=== PATIENT | female | born 1985 | race Asian ===

== ENCOUNTER 2020-10-31 18:08 | Inpatient (IN) | payer BC, OTHER ==
[~2020-10-31] VITALS: Ht 147.3 cm; Wt 56.0 kg
[~2020-10-31 18:08] MED LIST: IBUP200T49 PO; OXYC1TAB14 PO
--- NOTE | 2020-10-31 18:33 | NUR ---
Pt states she is here for TPN evaluation s/p small and large bowel removal and stoma creation.
--- NOTE | 2020-10-31 18:46 | NUR ---
PICC line accessed with sterile technique and labs drawn followed by port flushed. Red port used and PICC is a triple port access device. Pt now having EKG completed.
[2020-10-31 18:56] LABS: BASOPHILS % (AUTO) 1 % (0-1); EOSINOPHILS % (AUTO) 2 % (1-7); LYMPHOCYTES % (AUTO) 39 % (22-44); MEAN CORPUSCULAR HEMOGLOBIN 26.6 pg (27.0-34.8); MEAN CORPUSCULAR HGB CONC 33.4 g/dL (32.4-35.8); MEAN PLATELET VOLUME 8.9 fL (7.4-10.4); MONOCYTES % (AUTO) 13 % (2-9); NEUTROPHILS % (AUTO) 46 % (42-75); PLATELET COUNT 272 x10^3/uL (130-400); RED BLOOD COUNT 4.26 x10^6/uL (3.82-5.3); RED CELL DISTRIBUTION WIDTH 17.5 % (9.6-15.2)
[2020-10-31 18:58] LABS: MD NO
--- NOTE | 2020-10-31 19:05 | NUR ---
Report given to UMESH Saucedo and care transferred.
[2020-10-31 19:26] LABS: ALANINE AMINOTRANSFERASE 157 U/L (12-78); ALBUMIN 3.1 g/dL (3.4-5.0); ANION GAP 8 mmol/L (5-15); CHLORIDE 111 mmol/L (98-107); CREATININE 0.91 mg/dL (0.55-1.02)
[2020-10-31 19:28] LABS: ALKALINE PHOSPHATASE 170 U/L (45-117); BILIRUBIN,TOTAL 0.7 mg/dL (0.2-1.0); TOTAL PROTEIN 8.3 g/dL (6.4-8.2)
[2020-10-31] MEDS ORDERED: SODIUM CHLORIDE FLUSH 10ML SYR IVF PRN (21:30)
[2020-10-31] MEDS ORDERED: ONDANSETRON 2MG/ML, 2ML IVPush PRN (23:30)
[2020-10-31] MEDS ORDERED: D5%-0.45NACL+KCL 20MEQ 1,000 ML IV SCH (23:30)
[2020-10-31] MEDS ORDERED: morphine SULFATE 10 MG/ML, 1ML IVPush PRN (23:30)
[2020-10-31 23:54] LABS: INTERNATIONAL NORMALIZED RATIO 0.98 (0.93-1.1); PROTHROMBIN TIME 10.5 Seconds (9.6-11.5)
[2020-10-31 23:56] VITALS: BP 110/66
[2020-11-01] MEDS ORDERED: ENOX100S5 SQ (00:30)
[2020-11-01] MEDS: ENOXAPARIN 60 MG/0.6 ML SQ SCH ×3 (00:33→23:37)
[2020-11-01 06:22] LABS: BASOPHILS % (AUTO) 1 % (0-1); EOSINOPHILS % (AUTO) 2 % (1-7); LYMPHOCYTES % (AUTO) 46 % (22-44); MEAN CORPUSCULAR HEMOGLOBIN 26.7 pg (27.0-34.8); MEAN CORPUSCULAR HGB CONC 33.2 g/dL (32.4-35.8); MONOCYTES % (AUTO) 14 % (2-9); NEUTROPHILS % (AUTO) 37 % (42-75); PLATELET COUNT 277 x10^3/uL (130-400); RED BLOOD COUNT 4.19 x10^6/uL (3.82-5.3); RED CELL DISTRIBUTION WIDTH 17.2 % (9.6-15.2)
[2020-11-01 06:24] LABS: MD NO
[2020-11-01 06:35] LABS: ALANINE AMINOTRANSFERASE 149 U/L (12-78); ALBUMIN 2.8 g/dL (3.4-5.0); ANION GAP 9 mmol/L (5-15); CALCIUM 8.2 mg/dL (8.5-10.1); CHLORIDE 111 mmol/L (98-107); CREATININE 0.76 mg/dL (0.55-1.02)
[2020-11-01 06:37] LABS: ALKALINE PHOSPHATASE 154 U/L (45-117); BILIRUBIN,TOTAL 0.6 mg/dL (0.2-1.0); TOTAL PROTEIN 7.5 g/dL (6.4-8.2)
[2020-11-01] MEDS ORDERED: TPN PER PHARMACY MC PRN (07:00)
[2020-11-01 07:28] VITALS: BP 95/63
[2020-11-01] MEDS ORDERED: D5%-0.45NACL+KCL 20MEQ 1,000 ML IV SCH (08:42)
[2020-11-01] MEDS ORDERED: D5%-0.45% NACL 1,000 ML IV SCH ×2 (09:00→17:00)
[2020-11-01 12:40] VITALS: BP 106/79
[2020-11-01] MEDS: LACTOBACILLUS CHEW TABLET PO SCH ×2 (16:00→20:30)
[2020-11-01] MEDS ORDERED: AMINO ACID 10% IV SCH (17:00)
[2020-11-01] MEDS ORDERED: FAT EMUL IV SCH (17:00)
[2020-11-01] MEDS ORDERED: DEXTROSE 70% IV SCH (17:00)
[2020-11-01] MEDS ORDERED: DEXTROSE 50%, 50ML SYRINGE IVPush PRN (17:00)
[2020-11-01] MEDS ORDERED: [UNRECOGNIZED DRUG - OTHER] IV SCH (17:00)
[2020-11-01] MEDS ORDERED: SMOF TPN IV SCH (17:00)
[2020-11-01] MEDS ORDERED: DEXTROSE 10% 500 ML IV PRN (17:00)
[2020-11-01 18:59] VITALS: BP 109/78
[2020-11-01] MEDS: INSULIN REGULAR LOW DOSE Q6H X 48HRS SQ-INSULIN SCH (20:31)
[2020-11-02 00:23] VITALS: BP 101/71
[2020-11-02] MEDS: INSULIN REGULAR LOW DOSE Q6H X 48HRS SQ-INSULIN SCH ×4 (03:00→19:36)
[2020-11-02 03:39] LABS: ALANINE AMINOTRANSFERASE 151 U/L (12-78); ALBUMIN 2.9 g/dL (3.4-5.0); ANION GAP 5 mmol/L (5-15); CALCIUM 8.8 mg/dL (8.5-10.1); CHLORIDE 107 mmol/L (98-107)
[2020-11-02 03:44] LABS: ALKALINE PHOSPHATASE 166 U/L (45-117); BILIRUBIN, DIRECT 0.2 mg/dL (0.1-0.2); BILIRUBIN,INDIRECT 0.3 mg/dL (0.0-2.0); BILIRUBIN,TOTAL 0.5 mg/dL (0.2-1.0); CREATININE 0.87 mg/dL (0.55-1.02); PREALBUMIN 30.8 mg/dL (20.0-40.0); TRIGLYCERIDES 146 mg/dL (50-200)
[2020-11-02 07:07] VITALS: BP 109/82
[2020-11-02] MEDS ORDERED: POTASSIUM CHLORIDE 20 MEQ TAB.ER.PRT PO ONE (07:30)
[2020-11-02] MEDS: LACTOBACILLUS CHEW TABLET PO SCH ×3 (09:00→19:36)
[2020-11-02 12:19] VITALS: BP 91/68
[2020-11-02] MEDS: ENOXAPARIN 60 MG/0.6 ML SQ SCH ×2 (12:32→23:43)
[2020-11-02] MEDS ORDERED: FAT EMUL IV SCH (17:00)
[2020-11-02] MEDS ORDERED: DEXTROSE 70% IV SCH (17:00)
[2020-11-02] MEDS ORDERED: SMOF TPN IV SCH (17:00)
[2020-11-02] MEDS ORDERED: AMINO ACID 10% IV SCH (17:00)
[2020-11-02] MEDS ORDERED: [UNRECOGNIZED DRUG - OTHER] IV SCH (17:00)
[2020-11-02] MEDS: FILTER, DISP 1.2 MICRON FOR TPN/PVN IV PRN (18:21)
[2020-11-02 18:57] VITALS: BP 99/68
[2020-11-03 00:43] VITALS: BP 101/73
[2020-11-03] MEDS: INSULIN REGULAR LOW DOSE Q6H X 48HRS SQ-INSULIN SCH ×3 (03:00→15:00)
[2020-11-03 04:08] LABS: ALBUMIN 3.2 g/dL (3.4-5.0); ANION GAP 8 mmol/L (5-15); CALCIUM 9.9 mg/dL (8.5-10.1); CHLORIDE 92 mmol/L (98-107)
[2020-11-03 04:12] LABS: ALANINE AMINOTRANSFERASE 160 U/L (12-78); ALKALINE PHOSPHATASE 223 U/L (45-117); BILIRUBIN,TOTAL 0.6 mg/dL (0.2-1.0); TOTAL PROTEIN 9.2 g/dL (6.4-8.2)
[2020-11-03 07:04] VITALS: BP 89/66
[2020-11-03] MEDS ORDERED: POTASSIUM CHLORIDE 40 MEQ in SODIUM CHLORIDE 0.9% 100 ML IV ONE (08:00)
[2020-11-03] MEDS: LACTOBACILLUS CHEW TABLET PO SCH ×4 (08:24→20:03)
[2020-11-03] MEDS ORDERED: LOPERAMIDE 1 MG/5 ML, 10ML UDC PO SCH (09:00)
[2020-11-03] MEDS: LOPERAMIDE 1 MG/7.5 ML LIQUID PO SCH ×2 (11:25→20:04)
[2020-11-03] MEDS: ENOXAPARIN 60 MG/0.6 ML SQ SCH ×2 (11:25→23:46)
[2020-11-03 12:26] VITALS: BP 99/70
[2020-11-03] MEDS ORDERED: AMINO ACID 10% IV SCH (17:00)
[2020-11-03] MEDS ORDERED: FAT EMUL IV SCH (17:00)
[2020-11-03] MEDS ORDERED: [UNRECOGNIZED DRUG - OTHER] IV SCH (17:00)
[2020-11-03] MEDS ORDERED: DEXTROSE 70% IV SCH (17:00)
[2020-11-03] MEDS ORDERED: SMOF TPN IV SCH (17:00)
[2020-11-03 19:29] VITALS: BP 100/71
[2020-11-04 01:36] VITALS: BP 103/73
[2020-11-04 05:53] LABS: ALANINE AMINOTRANSFERASE 154 U/L (12-78); ALBUMIN 3.3 g/dL (3.4-5.0); ANION GAP 8 mmol/L (5-15); CALCIUM 9.6 mg/dL (8.5-10.1); CHLORIDE 96 mmol/L (98-107); CREATININE 0.94 mg/dL (0.55-1.02)
[2020-11-04 05:56] LABS: ALKALINE PHOSPHATASE 238 U/L (45-117); BILIRUBIN,TOTAL 0.6 mg/dL (0.2-1.0)
[2020-11-04] MEDS: INSULIN REGULAR LOW DOSE QDAY SQ-INSULIN SCH (07:30)
[2020-11-04 07:38] VITALS: BP 104/75
[2020-11-04] MEDS: LACTOBACILLUS CHEW TABLET PO SCH ×3 (07:52→20:21)
[2020-11-04] MEDS: LOPERAMIDE 1 MG/7.5 ML LIQUID PO SCH ×2 (07:53→20:21)
[2020-11-04] MEDS ORDERED: POTASSIUM CHLORIDE 40 MEQ in SODIUM CHLORIDE 0.9% 500 ML IV ONE (11:00)
[2020-11-04] MEDS ORDERED: POTASSIUM CHLORIDE 40 MEQ in SODIUM CHLORIDE 0.9% 100 ML IV ONE (11:00)
[2020-11-04] MEDS: ENOXAPARIN 60 MG/0.6 ML SQ SCH ×2 (11:04→23:51)
[2020-11-04 12:48] VITALS: BP 103/73
[2020-11-04] MEDS ORDERED: [UNRECOGNIZED DRUG - OTHER] IV SCH (17:00)
[2020-11-04] MEDS ORDERED: SMOF TPN IV SCH (17:00)
[2020-11-04] MEDS ORDERED: AMINO ACID 10% IV SCH (17:00)
[2020-11-04] MEDS ORDERED: FAT EMUL IV SCH (17:00)
[2020-11-04] MEDS ORDERED: DEXTROSE 70% IV SCH (17:00)
[2020-11-04 19:05] VITALS: BP 107/76
[2020-11-05 02:07] VITALS: BP 94/63
[2020-11-05 04:34] LABS: ALANINE AMINOTRANSFERASE 132 U/L (12-78); ANION GAP 5 mmol/L (5-15); CALCIUM 9.1 mg/dL (8.5-10.1); CHLORIDE 110 mmol/L (98-107)
[2020-11-05 04:37] LABS: ALKALINE PHOSPHATASE 205 U/L (45-117); BILIRUBIN,TOTAL 0.5 mg/dL (0.2-1.0); CREATININE 0.72 mg/dL (0.55-1.02); TOTAL PROTEIN 8.2 g/dL (6.4-8.2)
[2020-11-05] MEDS: INSULIN REGULAR LOW DOSE QDAY SQ-INSULIN SCH (07:30)
[2020-11-05 07:38] VITALS: BP 101/67
[2020-11-05] MEDS: LACTOBACILLUS CHEW TABLET PO SCH ×3 (08:21→20:05)
[2020-11-05] MEDS: LOPERAMIDE 1 MG/7.5 ML LIQUID PO SCH ×2 (08:22→20:05)
[2020-11-05] MEDS: ENOXAPARIN 60 MG/0.6 ML SQ SCH ×2 (11:42→23:30)
[2020-11-05 12:58] VITALS: BP 99/68
[2020-11-05] MEDS ORDERED: DEXTROSE 70% IV SCH (17:00)
[2020-11-05] MEDS ORDERED: FAT EMUL IV SCH (17:00)
[2020-11-05] MEDS ORDERED: AMINO ACID 10% IV SCH (17:00)
[2020-11-05] MEDS ORDERED: [UNRECOGNIZED DRUG - OTHER] IV SCH (17:00)
[2020-11-05] MEDS ORDERED: SMOF TPN IV SCH (17:00)
[2020-11-05 18:37] VITALS: BP 103/67
[2020-11-06 00:52] VITALS: BP 100/67
[2020-11-06 04:59] LABS: ALANINE AMINOTRANSFERASE 127 U/L (12-78); ANION GAP 5 mmol/L (5-15); CALCIUM 9.1 mg/dL (8.5-10.1); CHLORIDE 111 mmol/L (98-107); CREATININE 0.73 mg/dL (0.55-1.02)
[2020-11-06 05:02] LABS: ALKALINE PHOSPHATASE 222 U/L (45-117); BILIRUBIN,TOTAL 0.5 mg/dL (0.2-1.0); TOTAL PROTEIN 8.5 g/dL (6.4-8.2)
[2020-11-06 07:04] VITALS: BP 99/70
[2020-11-06] MEDS: INSULIN REGULAR LOW DOSE QDAY SQ-INSULIN SCH (07:30)
[2020-11-06] MEDS: LACTOBACILLUS CHEW TABLET PO SCH ×3 (09:00→21:08)
[2020-11-06] MEDS: LOPERAMIDE 1 MG/7.5 ML LIQUID PO SCH ×2 (09:00→21:08)
[2020-11-06] MEDS: ENOXAPARIN 60 MG/0.6 ML SQ SCH ×2 (11:30→23:25)
[2020-11-06 13:49] VITALS: BP 110/75
[2020-11-06] MEDS ORDERED: FAT EMUL IV SCH (17:00)
[2020-11-06] MEDS ORDERED: AMINO ACID 10% IV SCH (17:00)
[2020-11-06] MEDS ORDERED: SMOF TPN IV SCH (17:00)
[2020-11-06] MEDS ORDERED: DEXTROSE 70% IV SCH (17:00)
[2020-11-06] MEDS ORDERED: [UNRECOGNIZED DRUG - OTHER] IV SCH (17:00)
[2020-11-06] MEDS: FILTER, DISP 1.2 MICRON FOR TPN/PVN IV PRN (17:08)
[2020-11-06] MEDS: CATHFLO-ALTEPLASE 2 MG/2 ML CATHFLUSH ONE ×2 (17:30→17:58)
[2020-11-06 19:58] VITALS: BP 101/73
[2020-11-07 00:12] VITALS: BP 108/77
[2020-11-07 06:20] LABS: ALANINE AMINOTRANSFERASE 146 U/L (12-78); ALBUMIN 3.2 g/dL (3.4-5.0); ANION GAP 6 mmol/L (5-15); CALCIUM 9.1 mg/dL (8.5-10.1); CHLORIDE 96 mmol/L (98-107); CREATININE 0.79 mg/dL (0.55-1.02)
[2020-11-07 06:25] LABS: ALKALINE PHOSPHATASE 254 U/L (45-117); BILIRUBIN,TOTAL 0.6 mg/dL (0.2-1.0); PREALBUMIN 39.6 mg/dL (20.0-40.0); TOTAL PROTEIN 9.1 g/dL (6.4-8.2); TRIGLYCERIDES 191 mg/dL (50-200)
[2020-11-07 07:15] VITALS: BP 101/75
[2020-11-07] MEDS: INSULIN REGULAR LOW DOSE QDAY SQ-INSULIN SCH (07:30)
[2020-11-07] MEDS ORDERED: POTASSIUM CHLORIDE 40 MEQ in SODIUM CHLORIDE 0.9% 100 ML IV ONE (08:30)
[2020-11-07] MEDS: LACTOBACILLUS CHEW TABLET PO SCH ×3 (09:00→20:44)
[2020-11-07] MEDS: LOPERAMIDE 1 MG/7.5 ML LIQUID PO SCH ×2 (09:00→20:44)
[2020-11-07] MEDS: ENOXAPARIN 60 MG/0.6 ML SQ SCH ×2 (11:30→23:19)
[2020-11-07 12:55] VITALS: BP 89/68
[2020-11-07] MEDS ORDERED: FAT EMUL IV SCH (17:00)
[2020-11-07] MEDS ORDERED: AMINO ACID 10% IV SCH (17:00)
[2020-11-07] MEDS ORDERED: [UNRECOGNIZED DRUG - OTHER] IV SCH (17:00)
[2020-11-07] MEDS ORDERED: DEXTROSE 70% IV SCH (17:00)
[2020-11-07] MEDS ORDERED: SMOF TPN IV SCH (17:00)
[2020-11-07 18:31] VITALS: BP 103/73
[2020-11-08 02:00] VITALS: BP 101/72
[2020-11-08 07:03] VITALS: BP 103/71
[2020-11-08 07:03] LABS: ANION GAP 5 mmol/L (5-15); CALCIUM 8.6 mg/dL (8.5-10.1); CHLORIDE 99 mmol/L (98-107)
[2020-11-08 07:06] LABS: ALANINE AMINOTRANSFERASE 165 U/L (12-78); ALKALINE PHOSPHATASE 251 U/L (45-117); BILIRUBIN,TOTAL 0.5 mg/dL (0.2-1.0); CREATININE 0.72 mg/dL (0.55-1.02); TOTAL PROTEIN 8.4 g/dL (6.4-8.2)
[2020-11-08] MEDS: INSULIN REGULAR LOW DOSE QDAY SQ-INSULIN SCH (07:55)
[2020-11-08] MEDS: LACTOBACILLUS CHEW TABLET PO SCH ×3 (09:00→21:00)
[2020-11-08] MEDS: LOPERAMIDE 1 MG/7.5 ML LIQUID PO SCH ×3 (09:59→21:00)
[2020-11-08 10:19] VITALS: BP 103/72
[2020-11-08] MEDS ORDERED: POTASSIUM CHLORIDE 40 MEQ in SODIUM CHLORIDE 0.9% 100 ML IV ONE (11:00)
[2020-11-08] MEDS: ENOXAPARIN 60 MG/0.6 ML SQ SCH ×2 (11:05→23:30)
[2020-11-08 12:48] VITALS: BP 103/71
[2020-11-08] MEDS ORDERED: [UNRECOGNIZED DRUG - OTHER] IV SCH (17:00)
[2020-11-08] MEDS ORDERED: FAT EMUL IV SCH (17:00)
[2020-11-08] MEDS ORDERED: SMOF TPN IV SCH (17:00)
[2020-11-08] MEDS ORDERED: DEXTROSE 70% IV SCH (17:00)
[2020-11-08] MEDS ORDERED: AMINO ACID 10% IV SCH (17:00)
[2020-11-08] MEDS: FILTER, DISP 1.2 MICRON FOR TPN/PVN IV PRN (17:06)
[2020-11-08 19:32] VITALS: BP 99/73
[2020-11-09 00:37] VITALS: BP 96/68
[2020-11-09 06:31] LABS: ANION GAP 6 mmol/L (5-15); CALCIUM 8.7 mg/dL (8.5-10.1); CHLORIDE 106 mmol/L (98-107)
[2020-11-09 06:32] LABS: CREATININE 0.71 mg/dL (0.55-1.02)
[2020-11-09 06:56] VITALS: BP 92/65
[2020-11-09] MEDS ORDERED: POTASSIUM CHLORIDE 40 MEQ in SODIUM CHLORIDE 0.9% 500 ML IV ONE (07:00)
[2020-11-09] MEDS: INSULIN REGULAR LOW DOSE QDAY SQ-INSULIN SCH (07:30)
[2020-11-09] MEDS: LACTOBACILLUS CHEW TABLET PO SCH ×3 (08:45→20:11)
[2020-11-09] MEDS: LOPERAMIDE 1 MG/7.5 ML LIQUID PO SCH ×3 (08:45→20:11)
[2020-11-09] MEDS: POTASSIUM CHLORIDE 20 MEQ PACKET PO SCH ×2 (10:28→20:09)
[2020-11-09] MEDS: ENOXAPARIN 60 MG/0.6 ML SQ SCH ×2 (10:29→23:19)
[2020-11-09 13:51] VITALS: BP 96/69
[2020-11-09] MEDS ORDERED: AMINO ACID 10% IV SCH (17:00)
[2020-11-09] MEDS ORDERED: SMOF TPN IV SCH (17:00)
[2020-11-09] MEDS ORDERED: DEXTROSE 70% IV SCH (17:00)
[2020-11-09] MEDS ORDERED: FAT EMUL IV SCH (17:00)
[2020-11-09] MEDS ORDERED: [UNRECOGNIZED DRUG - OTHER] IV SCH (17:00)
[2020-11-09 17:07] LABS: ANION GAP 6 mmol/L (5-15); CALCIUM 9.2 mg/dL (8.5-10.1); CHLORIDE 110 mmol/L (98-107); CREATININE 0.78 mg/dL (0.55-1.02)
[2020-11-09] MEDS: PANTOPRAZOLE 40MG TABLET PO SCH (18:00)
[2020-11-09 18:58] VITALS: BP 113/82
[2020-11-10 00:53] VITALS: BP 106/77
[2020-11-10] MEDS: LOPERAMIDE 1 MG/7.5 ML LIQUID PO SCH ×4 (05:55→20:09)
[2020-11-10] MEDS: PANTOPRAZOLE 40MG TABLET PO SCH ×2 (05:55→18:08)
[2020-11-10 06:03] LABS: BASOPHILS % (AUTO) 1 % (0-1); EOSINOPHILS % (AUTO) 2 % (1-7); LYMPHOCYTES % (AUTO) 31 % (22-44); MD NO; MEAN CORPUSCULAR HEMOGLOBIN 26.3 pg (27.0-34.8); MEAN CORPUSCULAR HGB CONC 32.4 g/dL (32.4-35.8); MEAN PLATELET VOLUME 8.9 fL (7.4-10.4); MONOCYTES % (AUTO) 7 % (2-9); NEUTROPHILS % (AUTO) 60 % (42-75); PLATELET COUNT 353 x10^3/uL (130-400); RED BLOOD COUNT 4.72 x10^6/uL (3.82-5.3); RED CELL DISTRIBUTION WIDTH 17.4 % (9.6-15.2)
[2020-11-10 06:14] LABS: ALANINE AMINOTRANSFERASE 220 U/L (12-78); ALBUMIN 3.3 g/dL (3.4-5.0); ANION GAP 7 mmol/L (5-15); CALCIUM 9.2 mg/dL (8.5-10.1); CHLORIDE 110 mmol/L (98-107); CREATININE 0.76 mg/dL (0.55-1.02); IRON LEVEL 36 mcg/dL (50-170)
[2020-11-10 06:23] LABS: % IRON SATURATION 6 % (20-55); ALKALINE PHOSPHATASE 330 U/L (45-117); BILIRUBIN,TOTAL 0.5 mg/dL (0.2-1.0); TOTAL IRON BINDING CAPACITY 574 mcg/dL (250-450); TOTAL PROTEIN 9.3 g/dL (6.4-8.2)
[2020-11-10] MEDS: INSULIN REGULAR LOW DOSE QDAY SQ-INSULIN SCH (07:30)
[2020-11-10 08:32] VITALS: BP 102/74
[2020-11-10] MEDS: POTASSIUM CHLORIDE 20 MEQ PACKET PO SCH ×2 (10:26→18:08)
[2020-11-10] MEDS: ENOXAPARIN 60 MG/0.6 ML SQ SCH ×2 (10:27→23:11)
[2020-11-10] MEDS: IRON SUCROSE COMPLEX 100MG/5ML IV SCH (10:27)
[2020-11-10 14:07] VITALS: BP 90/66
[2020-11-10 15:11] LABS: ANA SCREEN NEGATIVE (Negative)
[2020-11-10] MEDS ORDERED: DEXTROSE 70% IV SCH (17:00)
[2020-11-10] MEDS ORDERED: SMOF TPN IV SCH (17:00)
[2020-11-10] MEDS ORDERED: AMINO ACID 10% IV SCH (17:00)
[2020-11-10] MEDS ORDERED: [UNRECOGNIZED DRUG - OTHER] IV SCH (17:00)
[2020-11-10] MEDS ORDERED: FAT EMUL IV SCH (17:00)
[2020-11-10 19:12] VITALS: BP 92/68
[2020-11-11 00:39] VITALS: BP 109/79
[2020-11-11] MEDS: LOPERAMIDE 1 MG/7.5 ML LIQUID PO SCH ×2 (05:21→11:00)
[2020-11-11] MEDS: PANTOPRAZOLE 40MG TABLET PO SCH (05:47)
[2020-11-11 06:10] LABS: ALANINE AMINOTRANSFERASE 250 U/L (12-78); ALBUMIN 3.6 g/dL (3.4-5.0); ANION GAP 8 mmol/L (5-15); CALCIUM 9.9 mg/dL (8.5-10.1); CHLORIDE 101 mmol/L (98-107)
[2020-11-11 06:13] LABS: ALKALINE PHOSPHATASE 363 U/L (45-117); BILIRUBIN,TOTAL 0.7 mg/dL (0.2-1.0); CREATININE 1.03 mg/dL (0.55-1.02); TOTAL PROTEIN 10.3 g/dL (6.4-8.2)
[2020-11-11 07:39] VITALS: BP 92/70
[2020-11-11] MEDS: INSULIN REGULAR LOW DOSE QDAY SQ-INSULIN SCH (08:02)
[2020-11-11] MEDS: IRON SUCROSE COMPLEX 100MG/5ML IV SCH (08:55)
[2020-11-11] MEDS: POTASSIUM CHLORIDE 20 MEQ PACKET PO SCH ×2 (08:55→17:25)
[2020-11-11] MEDS: ENOXAPARIN 60 MG/0.6 ML SQ SCH ×2 (11:02→23:30)
[2020-11-11] MEDS ORDERED: POTASSIUM CHLORIDE 20 MEQ in SODIUM CHLORIDE 0.45% 1,000 ML IV SCH (13:30)
[2020-11-11 13:45] VITALS: BP 95/68
[2020-11-11] MEDS ORDERED: DEXTROSE 70% IV SCH (17:00)
[2020-11-11] MEDS ORDERED: [UNRECOGNIZED DRUG - OTHER] IV SCH (17:00)
[2020-11-11] MEDS ORDERED: STERILE WATER IV SCH (17:00)
[2020-11-11] MEDS ORDERED: AMINO ACID 10% IV SCH (17:00)
[2020-11-11] MEDS: PANTOPRAZOLE 40 MG IV IVPush SCH (17:25)
[2020-11-11] MEDS: FILTER, DISP 1.2 MICRON FOR TPN/PVN IV PRN (18:01)
[2020-11-11 18:23] LABS: UREA NITROGEN,URINE RANDOM 1642 mg/dL
[2020-11-11 18:26] LABS: SODIUM,URINE RANDOM < 5 mmol/L
[2020-11-11 19:18] VITALS: BP 94/68
[2020-11-12] MEDS: ENOXAPARIN 60 MG/0.6 ML SQ SCH ×2 (00:04→11:21)
[2020-11-12 00:27] VITALS: BP 104/73
[2020-11-12] MEDS: PANTOPRAZOLE 40 MG IV IVPush SCH ×2 (05:40→17:44)
[2020-11-12 06:03] LABS: BASOPHILS % (AUTO) 1 % (0-1); EOSINOPHILS % (AUTO) 1 % (1-7); LYMPHOCYTES % (AUTO) 34 % (22-44); MEAN CORPUSCULAR HEMOGLOBIN 26.6 pg (27.0-34.8); MEAN CORPUSCULAR HGB CONC 33.2 g/dL (32.4-35.8); MEAN PLATELET VOLUME 8.8 fL (7.4-10.4); MONOCYTES % (AUTO) 10 % (2-9); NEUTROPHILS % (AUTO) 55 % (42-75); PLATELET COUNT 334 x10^3/uL (130-400); RED BLOOD COUNT 4.24 x10^6/uL (3.82-5.3); RED CELL DISTRIBUTION WIDTH 17.3 % (9.6-15.2)
[2020-11-12 06:08] LABS: ALANINE AMINOTRANSFERASE 196 U/L (12-78); ALBUMIN 2.9 g/dL (3.4-5.0); ANION GAP 6 mmol/L (5-15); CALCIUM 8.6 mg/dL (8.5-10.1); CHLORIDE 104 mmol/L (98-107); CREATININE 0.71 mg/dL (0.55-1.02)
[2020-11-12 06:11] LABS: ALKALINE PHOSPHATASE 269 U/L (45-117); BILIRUBIN,TOTAL 0.5 mg/dL (0.2-1.0); TOTAL PROTEIN 8.2 g/dL (6.4-8.2)
[2020-11-12 06:14] LABS: MD NO
[2020-11-12 07:15] VITALS: BP 96/67
[2020-11-12] MEDS: INSULIN REGULAR LOW DOSE QDAY SQ-INSULIN SCH (08:24)
[2020-11-12] MEDS: POTASSIUM CHLORIDE 20 MEQ PACKET PO SCH ×2 (08:24→17:44)
[2020-11-12] MEDS: IRON SUCROSE COMPLEX 100MG/5ML IV SCH (08:24)
[2020-11-12 14:30] VITALS: BP 101/71
[2020-11-12] MEDS ORDERED: [UNRECOGNIZED DRUG - OTHER] IV SCH (17:00)
[2020-11-12] MEDS ORDERED: STERILE WATER IV SCH (17:00)
[2020-11-12] MEDS ORDERED: AMINO ACID 10% IV SCH (17:00)
[2020-11-12] MEDS ORDERED: DEXTROSE 70% IV SCH (17:00)
[2020-11-12] MEDS: FILTER, DISP 1.2 MICRON FOR TPN/PVN IV PRN (17:50)
[2020-11-12 18:43] VITALS: BP 93/61
[2020-11-13 00:56] VITALS: BP 98/67
[2020-11-13 04:53] LABS: BASOPHILS % (AUTO) 1 % (0-1); EOSINOPHILS % (AUTO) 1 % (1-7); LYMPHOCYTES % (AUTO) 29 % (22-44); MEAN CORPUSCULAR HEMOGLOBIN 26.3 pg (27.0-34.8); MEAN PLATELET VOLUME 9.2 fL (7.4-10.4); MONOCYTES % (AUTO) 10 % (2-9); NEUTROPHILS % (AUTO) 59 % (42-75); PLATELET COUNT 352 x10^3/uL (130-400); RED BLOOD COUNT 4.53 x10^6/uL (3.82-5.3)
[2020-11-13 04:54] LABS: ALANINE AMINOTRANSFERASE 217 U/L (12-78); ALBUMIN 3.2 g/dL (3.4-5.0); ANION GAP 7 mmol/L (5-15); CALCIUM 8.9 mg/dL (8.5-10.1); CHLORIDE 108 mmol/L (98-107); CREATININE 0.79 mg/dL (0.55-1.02)
[2020-11-13 04:56] LABS: ALKALINE PHOSPHATASE 299 U/L (45-117); BILIRUBIN,TOTAL 0.5 mg/dL (0.2-1.0); MD NO; TOTAL PROTEIN 9.1 g/dL (6.4-8.2)
[2020-11-13] MEDS: PANTOPRAZOLE 40 MG IV IVPush SCH ×2 (05:11→18:27)
[2020-11-13] MEDS ORDERED: SODIUM CHLORIDE 0.9% 1,000 ML IV SCH (07:00)
[2020-11-13 07:23] VITALS: BP 96/71
[2020-11-13] MEDS: INSULIN REGULAR LOW DOSE QDAY SQ-INSULIN SCH (07:30)
[2020-11-13] MEDS ORDERED: OCTREOTIDE 1,250 MCG in SODIUM CHLORIDE 0.9% 247.5 ML IV PRN (10:00)
[2020-11-13] MEDS: ENOXAPARIN 60 MG/0.6 ML SQ SCH (11:05)
[2020-11-13 12:03] VITALS: BP 94/64
[2020-11-13] MEDS ORDERED: DEXTROSE 70% IV SCH (17:00)
[2020-11-13] MEDS ORDERED: AMINO ACID 10% IV SCH (17:00)
[2020-11-13] MEDS ORDERED: [UNRECOGNIZED DRUG - OTHER] IV SCH (17:00)
[2020-11-13] MEDS ORDERED: STERILE WATER IV SCH (17:00)
[2020-11-13] MEDS: FILTER, DISP 1.2 MICRON FOR TPN/PVN IV PRN (18:27)
[2020-11-13 19:14] VITALS: BP 93/64
[2020-11-14 00:23] VITALS: BP 112/70
[2020-11-14 03:35] VITALS: BP 112/77
[2020-11-14 04:38] LABS: BASOPHILS % (AUTO) 1 % (0-1); EOSINOPHILS % (AUTO) 2 % (1-7); LYMPHOCYTES % (AUTO) 37 % (22-44); MEAN CORPUSCULAR HEMOGLOBIN 26.3 pg (27.0-34.8); MEAN CORPUSCULAR HGB CONC 32.5 g/dL (32.4-35.8); MEAN PLATELET VOLUME 9.1 fL (7.4-10.4); MONOCYTES % (AUTO) 11 % (2-9); NEUTROPHILS % (AUTO) 50 % (42-75); PLATELET COUNT 349 x10^3/uL (130-400); RED BLOOD COUNT 4.31 x10^6/uL (3.82-5.3); RED CELL DISTRIBUTION WIDTH 17.2 % (9.6-15.2)
[2020-11-14 04:40] LABS: MD NO
[2020-11-14 04:47] LABS: ALANINE AMINOTRANSFERASE 178 U/L (12-78); ANION GAP 9 mmol/L (5-15); CALCIUM 8.4 mg/dL (8.5-10.1); CHLORIDE 109 mmol/L (98-107)
[2020-11-14 04:54] LABS: ALKALINE PHOSPHATASE 288 U/L (45-117); BILIRUBIN,TOTAL 0.4 mg/dL (0.2-1.0); CREATININE 0.66 mg/dL (0.55-1.02); PREALBUMIN 37.7 mg/dL (20.0-40.0); TOTAL PROTEIN 8.2 g/dL (6.4-8.2)
[2020-11-14] MEDS: PANTOPRAZOLE 40 MG IV IVPush SCH ×2 (05:27→18:01)
[2020-11-14] MEDS: ENOXAPARIN 60 MG/0.6 ML SQ SCH ×2 (05:28→18:03)
[2020-11-14 07:26] VITALS: BP 100/57
[2020-11-14] MEDS: INSULIN REGULAR LOW DOSE QDAY SQ-INSULIN SCH (07:30)
[2020-11-14 11:38] VITALS: BP 100/66
[2020-11-14] MEDS ORDERED: OLIV IV SCH ×2 (17:00)
[2020-11-14] MEDS ORDERED: FAT EMUL IV SCH ×2 (17:00)
[2020-11-14] MEDS ORDERED: AMINO ACID 10% IV SCH ×2 (17:00)
[2020-11-14] MEDS ORDERED: FISH OIL IV SCH ×2 (17:00)
[2020-11-14] MEDS ORDERED: SOY IV SCH ×2 (17:00)
[2020-11-14] MEDS ORDERED: MCT IV SCH ×2 (17:00)
[2020-11-14] MEDS ORDERED: [UNRECOGNIZED DRUG - OTHER] IV SCH ×2 (17:00)
[2020-11-14] MEDS ORDERED: DEXTROSE 70% IV SCH ×2 (17:00)
[2020-11-14] MEDS: FILTER, DISP 1.2 MICRON FOR TPN/PVN IV PRN (18:02)
[2020-11-14 20:37] VITALS: BP 103/71
[2020-11-15 01:27] VITALS: BP 98/58
[2020-11-15 06:12] LABS: ALBUMIN 2.8 g/dL (3.4-5.0); ANION GAP 4 mmol/L (5-15); CALCIUM 8.5 mg/dL (8.5-10.1); CHLORIDE 107 mmol/L (98-107)
[2020-11-15 06:17] LABS: ALANINE AMINOTRANSFERASE 144 U/L (12-78); ALKALINE PHOSPHATASE 277 U/L (45-117); BILIRUBIN,TOTAL 0.6 mg/dL (0.2-1.0); CREATININE 0.64 mg/dL (0.55-1.02); TOTAL PROTEIN 7.6 g/dL (6.4-8.2)
[2020-11-15 06:39] VITALS: BP 104/70
[2020-11-15] MEDS: PANTOPRAZOLE 40 MG IV IVPush SCH ×2 (06:42→17:41)
[2020-11-15] MEDS: ENOXAPARIN 60 MG/0.6 ML SQ SCH ×2 (06:43→17:41)
[2020-11-15] MEDS: INSULIN REGULAR LOW DOSE QDAY SQ-INSULIN SCH (07:30)
[2020-11-15 12:10] VITALS: BP 95/64
[2020-11-15] MEDS ORDERED: AMINO ACID 10% IV SCH (17:00)
[2020-11-15] MEDS ORDERED: STERILE WATER IV SCH (17:00)
[2020-11-15] MEDS ORDERED: DEXTROSE 70% IV SCH (17:00)
[2020-11-15] MEDS ORDERED: [UNRECOGNIZED DRUG - OTHER] IV SCH (17:00)
[2020-11-15] MEDS: FILTER, DISP 1.2 MICRON FOR TPN/PVN IV PRN (17:41)
[2020-11-15 19:35] VITALS: BP 106/75
[2020-11-16 00:50] VITALS: BP 106/74
[2020-11-16] MEDS: PANTOPRAZOLE 40 MG IV IVPush SCH ×2 (05:34→18:28)
[2020-11-16] MEDS: ENOXAPARIN 60 MG/0.6 ML SQ SCH ×2 (05:35→18:29)
[2020-11-16 06:38] LABS: ALANINE AMINOTRANSFERASE 131 U/L (12-78); ANION GAP 5 mmol/L (5-15); CALCIUM 8.5 mg/dL (8.5-10.1); CHLORIDE 105 mmol/L (98-107); CREATININE 0.73 mg/dL (0.55-1.02)
[2020-11-16 06:40] LABS: ALKALINE PHOSPHATASE 303 U/L (45-117); BILIRUBIN,TOTAL 0.4 mg/dL (0.2-1.0); TOTAL PROTEIN 8.1 g/dL (6.4-8.2)
[2020-11-16] MEDS: INSULIN REGULAR LOW DOSE QDAY SQ-INSULIN SCH ×2 (08:07→09:49)
[2020-11-16 09:48] VITALS: BP 91/58
[2020-11-16 13:50] VITALS: BP 104/70
[2020-11-16] MEDS ORDERED: AMINO ACID 10% IV SCH ×3 (17:00→18:32)
[2020-11-16] MEDS ORDERED: DEXTROSE 70% IV SCH ×3 (17:00→18:32)
[2020-11-16] MEDS ORDERED: FAT EMUL IV SCH ×3 (17:00→18:32)
[2020-11-16] MEDS ORDERED: SMOF TPN IV SCH ×3 (17:00→18:32)
[2020-11-16] MEDS ORDERED: [UNRECOGNIZED DRUG - REMARK] MC ONE (17:00)
[2020-11-16] MEDS ORDERED: [UNRECOGNIZED DRUG - OTHER] IV SCH ×2 (17:00→18:32)
[2020-11-16] MEDS ORDERED: [UNRECOGNIZED DRUG - OTHER] IV SCH (17:00)
[2020-11-16] MEDS: FILTER, DISP 1.2 MICRON FOR TPN/PVN IV PRN (18:20)
[2020-11-16 19:59] VITALS: BP 93/59
[2020-11-17 00:49] VITALS: BP 97/66
[2020-11-17] MEDS: PANTOPRAZOLE 40 MG IV IVPush SCH ×2 (05:12→17:50)
[2020-11-17] MEDS: ENOXAPARIN 60 MG/0.6 ML SQ SCH ×2 (05:15→17:52)
[2020-11-17 05:32] LABS: BASOPHILS % (AUTO) 1 % (0-1); EOSINOPHILS % (AUTO) 1 % (1-7); LYMPHOCYTES % (AUTO) 29 % (22-44); MEAN CORPUSCULAR HEMOGLOBIN 26.5 pg (27.0-34.8); MEAN CORPUSCULAR HGB CONC 32.8 g/dL (32.4-35.8); MEAN PLATELET VOLUME 8.8 fL (7.4-10.4); MONOCYTES % (AUTO) 10 % (2-9); NEUTROPHILS % (AUTO) 59 % (42-75); PLATELET COUNT 329 x10^3/uL (130-400); RED BLOOD COUNT 4.11 x10^6/uL (3.82-5.3); RED CELL DISTRIBUTION WIDTH 17.7 % (9.6-15.2)
[2020-11-17 05:34] LABS: MD NO
[2020-11-17 05:36] LABS: CHLORIDE 111 mmol/L (98-107)
[2020-11-17 05:49] LABS: ALANINE AMINOTRANSFERASE 112 U/L (12-78); ALBUMIN 2.7 g/dL (3.4-5.0); ALKALINE PHOSPHATASE 284 U/L (45-117); ANION GAP 7 mmol/L (5-15); BILIRUBIN,TOTAL 0.3 mg/dL (0.2-1.0); CALCIUM 8.5 mg/dL (8.5-10.1); CREATININE 0.53 mg/dL (0.55-1.02); TOTAL PROTEIN 7.7 g/dL (6.4-8.2)
[2020-11-17 07:53] VITALS: BP 99/65
[2020-11-17] MEDS: INSULIN REGULAR LOW DOSE QDAY SQ-INSULIN SCH (08:12)
[2020-11-17 14:57] VITALS: BP 110/76
[2020-11-17] MEDS ORDERED: [UNRECOGNIZED DRUG - OTHER] IV SCH (17:00)
[2020-11-17] MEDS ORDERED: AMINO ACID 10% IV SCH (17:00)
[2020-11-17] MEDS ORDERED: STERILE WATER IV SCH (17:00)
[2020-11-17] MEDS ORDERED: DEXTROSE 70% IV SCH (17:00)
[2020-11-17] MEDS: FILTER, DISP 1.2 MICRON FOR TPN/PVN IV PRN (17:51)
[2020-11-17 18:54] VITALS: BP 103/68
[2020-11-18 01:34] VITALS: BP 108/72
[2020-11-18] MEDS: PANTOPRAZOLE 40 MG IV IVPush SCH ×2 (05:57→17:56)
[2020-11-18] MEDS: ENOXAPARIN 60 MG/0.6 ML SQ SCH ×2 (05:57→17:56)
[2020-11-18 06:29] LABS: ALANINE AMINOTRANSFERASE 114 U/L (12-78); ALBUMIN 2.6 g/dL (3.4-5.0); ANION GAP 6 mmol/L (5-15); CALCIUM 8.6 mg/dL (8.5-10.1); CHLORIDE 104 mmol/L (98-107); CREATININE 0.54 mg/dL (0.55-1.02)
[2020-11-18 06:31] LABS: ALKALINE PHOSPHATASE 270 U/L (45-117); BILIRUBIN,TOTAL 0.3 mg/dL (0.2-1.0); TOTAL PROTEIN 7.3 g/dL (6.4-8.2)
[2020-11-18 07:31] VITALS: BP 92/67
[2020-11-18] MEDS: INSULIN REGULAR LOW DOSE QDAY SQ-INSULIN SCH (09:05)
[2020-11-18 13:02] VITALS: BP 93/63
[2020-11-18] MEDS ORDERED: MCT IV SCH (17:00)
[2020-11-18] MEDS ORDERED: AMINO ACID 10% IV SCH (17:00)
[2020-11-18] MEDS ORDERED: SOY IV SCH (17:00)
[2020-11-18] MEDS ORDERED: DEXTROSE 70% IV SCH (17:00)
[2020-11-18] MEDS ORDERED: OLIV IV SCH (17:00)
[2020-11-18] MEDS ORDERED: FISH OIL IV SCH (17:00)
[2020-11-18] MEDS ORDERED: FAT EMUL IV SCH (17:00)
[2020-11-18] MEDS ORDERED: [UNRECOGNIZED DRUG - OTHER] IV SCH (17:00)
[2020-11-18] MEDS: FILTER, DISP 1.2 MICRON FOR TPN/PVN IV PRN (17:56)
[2020-11-18 19:35] VITALS: BP 109/72
[2020-11-19 00:59] VITALS: BP 105/71
[2020-11-19] MEDS: PANTOPRAZOLE 40 MG IV IVPush SCH ×2 (05:18→18:08)
[2020-11-19] MEDS: ENOXAPARIN 60 MG/0.6 ML SQ SCH ×2 (05:18→18:09)
[2020-11-19 06:11] LABS: ANION GAP 6 mmol/L (5-15); CHLORIDE 107 mmol/L (98-107)
[2020-11-19 07:24] VITALS: BP 100/68
[2020-11-19] MEDS: INSULIN REGULAR LOW DOSE QDAY SQ-INSULIN SCH (09:49)
[2020-11-19 13:00] VITALS: BP 102/66
[2020-11-19] MEDS ORDERED: AMINO ACID 10% IV SCH (16:00)
[2020-11-19] MEDS ORDERED: STERILE WATER IV SCH (16:00)
[2020-11-19] MEDS ORDERED: [UNRECOGNIZED DRUG - OTHER] IV SCH (16:00)
[2020-11-19] MEDS ORDERED: DEXTROSE 70% IV SCH (16:00)
[2020-11-19] MEDS: FILTER, DISP 1.2 MICRON FOR TPN/PVN IV PRN (18:09)
[2020-11-19 20:01] VITALS: BP 111/69
[2020-11-20 01:19] VITALS: BP 103/64
[2020-11-20 06:03] LABS: ANION GAP 5 mmol/L (5-15); CALCIUM 8.6 mg/dL (8.5-10.1); CHLORIDE 108 mmol/L (98-107); CREATININE 0.52 mg/dL (0.55-1.02)
[2020-11-20] MEDS: PANTOPRAZOLE 40 MG IV IVPush SCH ×2 (06:34→17:05)
[2020-11-20] MEDS: ENOXAPARIN 60 MG/0.6 ML SQ SCH ×2 (06:34→17:05)
[2020-11-20 08:29] VITALS: BP 91/66
[2020-11-20] MEDS ORDERED: [UNRECOGNIZED DRUG - OTHER] IV SCH (10:38)
[2020-11-20] MEDS ORDERED: AMINO ACID 10% IV SCH (10:38)
[2020-11-20] MEDS ORDERED: DEXTROSE 70% IV SCH (10:38)
[2020-11-20] MEDS ORDERED: STERILE WATER IV SCH (10:38)
[2020-11-20 14:51] VITALS: BP 99/69
[2020-11-20] MEDS: FILTER, DISP 1.2 MICRON FOR TPN/PVN IV PRN (17:06)
[2020-11-20 20:09] VITALS: BP 98/66
[2020-11-21 01:53] VITALS: BP 109/76
[2020-11-21] MEDS: PANTOPRAZOLE 40 MG IV IVPush SCH ×2 (06:00→17:15)
[2020-11-21] MEDS: ENOXAPARIN 60 MG/0.6 ML SQ SCH ×2 (06:00→17:15)
[2020-11-21 06:11] LABS: ANION GAP 6 mmol/L (5-15); CALCIUM 8.7 mg/dL (8.5-10.1); CHLORIDE 108 mmol/L (98-107)
[2020-11-21 06:16] LABS: ALANINE AMINOTRANSFERASE 118 U/L (12-78); ALKALINE PHOSPHATASE 382 U/L (45-117); BILIRUBIN,TOTAL 0.3 mg/dL (0.2-1.0); CREATININE 0.59 mg/dL (0.55-1.02); PREALBUMIN 33.4 mg/dL (20.0-40.0); TOTAL PROTEIN 7.8 g/dL (6.4-8.2); TRIGLYCERIDES 177 mg/dL (50-200)
[2020-11-21 07:10] VITALS: BP 100/68
[2020-11-21 12:10] VITALS: BP 113/81
[2020-11-21] MEDS: FILTER, DISP 1.2 MICRON FOR TPN/PVN IV PRN (15:48)
[2020-11-21] MEDS ORDERED: FAT EMULSIONS IV SCH (16:00)
[2020-11-21] MEDS ORDERED: AMINO ACID 10% IV SCH (16:00)
[2020-11-21] MEDS ORDERED: [UNRECOGNIZED DRUG - OTHER] IV SCH (16:00)
[2020-11-21] MEDS ORDERED: DEXTROSE 70% IV SCH (16:00)
[2020-11-21 19:57] VITALS: BP 95/68
[2020-11-22 02:00] VITALS: BP 99/65
[2020-11-22] MEDS: PANTOPRAZOLE 40 MG IV IVPush SCH (05:53)
[2020-11-22] MEDS: ENOXAPARIN 60 MG/0.6 ML SQ SCH (05:54)
[2020-11-22 06:56] LABS: ANION GAP 8 mmol/L (5-15); CALCIUM 8.9 mg/dL (8.5-10.1); CHLORIDE 106 mmol/L (98-107); CREATININE 0.75 mg/dL (0.55-1.02)
[2020-11-22 07:04] VITALS: BP 104/73
[2020-11-22] MEDS ORDERED: ENOX60DI3 SQ (11:44)
[2020-11-22] MEDS ORDERED: Tpn Per Pharmacy MC (11:44)
[2020-11-22] MEDS ORDERED: OCTR50AM SQ (11:44)
[2020-11-22] MEDS ORDERED: [UNRECOGNIZED DRUG - CODE] SQ (11:44)
[2020-11-22] MEDS ORDERED: OMEP-110 PO (11:44)
[2020-11-22 12:10] VITALS: BP 108/69
[2020-11-22] MEDS ORDERED: AMINO ACID 10% IV SCH (16:00)
[2020-11-22] MEDS ORDERED: [UNRECOGNIZED DRUG - OTHER] IV SCH (16:00)
[2020-11-22] MEDS ORDERED: DEXTROSE 70% IV SCH (16:00)
[2020-11-22] MEDS ORDERED: STERILE WATER IV SCH (16:00)
== END 2020-11-22 14:18 | disposition home health service (06) | DRG 391 ==
LOC: ED 20:04 → EDIP 21:10 → 3N 23:27 → 4EST 11-08 10:14
PROVIDERS: ADMIT Family Medicine; ATTEND Internal Medicine
PROC: 02HV33Z Insertion of Infusion Device into Superior Vena Cava, Percutaneous Approach (ICD-10-PCS; principal; 2020-11-01)
PROC: B548ZZA Ultrasonography of Superior Vena Cava, Guidance (ICD-10-PCS; 2020-11-01)
DX: K91.2 Postsurgical malabsorption, not elsewhere classified (principal); E43 Unspecified severe protein-calorie malnutrition; D68.59 Other primary thrombophilia; E87.0 Hyperosmolality and hypernatremia; K55.9 Vascular disorder of intestine, unspecified; D50.9 Iron deficiency anemia, unspecified; E87.6 Hypokalemia; R94.5 Abnormal results of liver function studies; E87.8 Other disorders of electrolyte and fluid balance, not elsewhere classified; Y83.8 Other surgical procedures as the cause of abnormal reaction of the patient, or of later complication, without mention of misadventure at the time of the procedure; Y82.8 Other medical devices associated with adverse incidents; G47.00 Insomnia, unspecified; K76.9 Liver disease, unspecified; Z86.718 Personal history of other venous thrombosis and embolism; Z91.19 Patient's noncompliance with other medical treatment and regimen; Z93.1 Gastrostomy status; Z93.4 Other artificial openings of gastrointestinal tract status; Z86.711 Personal history of pulmonary embolism; Y92.89 Other specified places as the place of occurrence of the external cause; Z68.25 Body mass index [BMI] 25.0-25.9, adult
CPT/HCPCS: 36415; 99285; J3475; 71045; 76705; 80048; 80053; 80074; 80076; 82390; 82570; 82784; 82962; 83516; 83540; 83550; 83735; 84100; 84132; 84134; 84300; 84443; 84478; 84540; 84703; 85025; 85610; 86038; 86706; 93005; G0378; J0610; J1650; J1756; J2354; J2997; J3480; C9113; J3420; J7030; J7040; J7050